=== PATIENT | male | born 1990 | race African-American/Black ===

== ENCOUNTER 2021-03-09 14:46 | Emergency (ER) | payer OTHER ==
[~2021-03-09] VITALS: Ht 182.9 cm; Wt 87.6 kg
[2021-03-09] MEDS ORDERED: FISH1000 PO (14:59)
[2021-03-09] MEDS ORDERED: MULT1TAB8 PO (14:59)
[2021-03-09] MEDS ORDERED: ASPIRIN 81 MG CHEW TABLET PO ONE (16:45)
[2021-03-09 18:03] LABS: BASO % 0.5 % (0.0-1.0); EOS # 0.2 10^3/uL (0.0-0.5); EOS % 2.7 % (0.0-3.0); HEMATOCRIT 44.3 % (42.0-52.0); HEMOGLOBIN 14.7 g/dl (13.5-17.5); LYMPH # 1.8 10^3/uL (1.5-5.0); LYMPH % 26.3 % (24.0-44.0); MEAN CORPUSCULAR HEMOGLOBIN 30.5 pg (27.0-33.0); MEAN CORPUSCULAR HGB CONC 33.2 g/dl (32.0-36.5); MEAN CORPUSCULAR VOLUME 91.9 fl (80.0-96.0); MONO # 0.7 10^3/uL (0.0-0.8); MONO % 10.5 % (2.0-8.0); NEUTROPHILS % 59.7 % (36.0-66.0); PLATELET COUNT, AUTOMATED 298 10^3/uL (150-450); RED BLOOD COUNT 4.82 10^6/uL (4.30-6.10); WHITE BLOOD COUNT 6.7 10^3/uL (4.0-10.0)
[2021-03-09 18:18] LABS: BLOOD UREA NITROGEN 17 MG/DL (7-18); CALCIUM LEVEL 9.2 MG/DL (8.5-10.1); CARBON DIOXIDE LEVEL 29 MEQ/L (21-32); CHLORIDE LEVEL 106 MEQ/L (98-107); CK-MB VALUE MASS 1.1 NG/ML (<3.6); CPK CREATINE PHOSPHOKINASE 178 U/L (39-308); CREATININE FOR GFR 1.06 MG/DL (0.70-1.30); GLOMERULAR FILTRATION RATE > 60.0 (>60); GLUCOSE, FASTING 83 MG/DL (70-100); MB/CK RELATIVE INDEX 0.62 (< OR =4); POTASSIUM SERUM 4.2 MEQ/L (3.5-5.1); SODIUM LEVEL 141 MEQ/L (136-145); TROPONIN I < 0.02 NG/ML (< 0.10)
[2021-03-09] MEDS ORDERED: ISOVUE-370 76% 100ML VIAL As Ordered ONE (18:32)
[2021-03-09 19:54] VITALS: BP 148/78
== END 2021-03-09 19:58 | disposition home or self-care (01) ==
LOC: M ED 14:46
DX: R07.89 Other chest pain (principal); R00.1 Bradycardia, unspecified
CPT/HCPCS: 36415; 71046; 71275; 80048; 82550; 82553; 84484; 85025; 85379; 93005; 93041; 94760; 99284; Q9967

== ENCOUNTER → 2021-08-01 | Outpatient (CLI) | payer OTHER ==
[~2021-08-01] MED LIST: FISH1000 PO; MULT1TAB8 PO
[2021-08-01 16:12] LABS: BASO % 0.4 % (0.0-1.0); EOS # 0.1 10^3/uL (0.0-0.5); EOS % 1.8 % (0.0-3.0); HEMATOCRIT 45.4 % (42.0-52.0); HEMOGLOBIN 14.9 g/dl (13.5-17.5); LYMPH # 1.7 10^3/uL (1.5-5.0); LYMPH % 22.9 % (24.0-44.0); MEAN CORPUSCULAR HEMOGLOBIN 30.4 pg (27.0-33.0); MEAN CORPUSCULAR HGB CONC 32.8 g/dl (32.0-36.5); MEAN CORPUSCULAR VOLUME 92.7 fl (80.0-96.0); MONO # 0.7 10^3/uL (0.0-0.8); MONO % 9.1 % (2.0-8.0); NEUTROPHILS % 65.4 % (36.0-66.0); PLATELET COUNT, AUTOMATED 194 10^3/uL (150-450); WHITE BLOOD COUNT 7.6 10^3/uL (4.0-10.0)
== END ==
LOC: M WUC 11:48
PROVIDERS: ATTEND Physician Assistant
DX: R22.9 Localized swelling, mass and lump, unspecified (principal)

== ENCOUNTER → 2021-08-03 | Outpatient (CLI) | payer OTHER ==
--- NOTE | 2021-08-03 17:15 | REP ---
INDICATION: LOCALIZED SWELLING MASS AND LUMP UNSPECIFIED. COMPARISON: None. TECHNIQUE: Real-time sonographic evaluation of the testicles with Doppler FINDINGS: The right testicle measures 4.7 x 2.4 x 3.4 cm and the left testicle measures 4.5 x 2.5 x 3.3 cm. The testicular parenchymal echo pattern and vascular pattern is within normal limits bilaterally. There are no testicular masses. There is no hydrocele. Incidental bilateral spermatoceles are identified measuring 4 mm in size or less. The right testicular RI is 0.49 and the left is 0.63 Sonographic evaluation over a palpable scrotal mass shows no sonographic evidence of a measurable mass. Mild hypoechogenicity is identified in the region interrogated. IMPRESSION: 1. There is no testicular mass. 2. Incidental spermatoceles. 3. Possible focal scrotal edema. Etiology uncertain. Urological consultation is suggested. <Electronically signed by Db Acuna > 08/03/21 0947
== END ==
LOC: M RAD 16:24
PROVIDERS: ATTEND Physician Assistant
DX: R22.9 Localized swelling, mass and lump, unspecified (principal); N43.40 Spermatocele of epididymis, unspecified